=== PATIENT | female | born 1955 | race Two or more races ===

== ENCOUNTER → 2025-02-16 | Outpatient (CLI) | payer MEDICARE, MEDICAID, SELFPAY ==
[2025-02-16 14:23] LABS: Basophils # (Auto) 0.1 Thou/mm3 (0.0-0.2); Basophils % (Auto) 1 % (0-2.5); Eosinophils # (Auto) 0.3 Thou/mm3 (0.0-0.5); Eosinophils % (Auto) 3 % (0-10); Hemoglobin 13.6 g/dL (12.0-16.0); Immature Granulocytes % (Auto) 0 % (0-0); Immature Granulocytes Auto 0.04 Thou/mm3 (0.00-0.00); Lymphocytes # (Auto) 2.2 Thou/mm3 (1.0-4.8); Lymphocytes % (Auto) 23 % (10-50); Mean Corpuscular HGB Conc 33.2 g/dl (31.0-37.0); Mean Corpuscular Hemoglobin 29.8 pg (25.0-35.0); Mean Corpuscular Volume 90 fL (80-100); Monocytes # (Auto) 0.7 Thou/mm3 (0.0-0.8); Monocytes % (Auto) 8 % (0-12); Neutrophils # (Auto) 6.2 Thou/mm3 (1.8-7.7); Neutrophils % (Auto) 65 % (37-80); Nucleated Red Blood Cell % 0 /100 WBC (0); Platelet Count 202 Thou/mm3 (140-440); RDW Standard Deviation 45.3 fL (36.4-46.3); Red Blood Count 4.57 Miln/mm3 (4.00-5.20); White Blood Count 9.5 Thou/mm3 (3.6-11.0)
[2025-02-16 14:42] LABS: Ferritin 92 ng/mL (7.3-270.7); Iron 50 mcg/dL (50-170); Total Iron Binding Capacity 332 mcg/dL (250-425)
[2025-02-16 14:44] LABS: Alanine Aminotransferase 24 U/L (10-49); Albumin, Serum 4.1 gm/dL (3.4-4.8); Albumin/Globulin Ratio 1.4 (1.2-2.2); Alkaline Phosphatase 91 U/L (46-116); Anion Gap 5 (7-16); Aspartate Amino Transferase 23 U/L (0-34); BUN/Creatinine Ratio 17 Ratio (12-20); Bilirubin,Total 0.3 mg/dL (0.3-1.2); Blood Urea Nitrogen 20 mg/dL (9-23); Calcium 9.3 mg/dL (8.3-10.6); Calcium (Corrected) 9.3 mg/dL (8.5-10.1); Carbon Dioxide 28.3 mMol/L (20.0-31.0); Chloride 107 mMol/L (98-107); Cholesterol 157 mg/dL (132-200); Creatinine (Component) 1.2 mg/dL (0.6-1.3); Free T4 (Free Thyroxine) 1.15 ng/dL (0.89-1.76); Globulin 2.9 gm/dL (2.3-3.5); Glucose 91 mg/dL (74-106); HDL Cholesterol 52 mg/dL (40-60); LDL Cholesterol,Calculated 90 mg/dL (0-130); Osmolality,Calculated 282 (275-295); Potassium 4.4 mMol/L (3.4-5.1); Sodium 140 mMol/L (136-145); Thyroid Stimulating Hormone 2.34 uIU/mL (0.55-4.78); Triglycerides 77 mg/dL (30-150); eGFR 49 See Note
[2025-02-16 16:12] LABS: Folate 17.31 ng/mL (>5.38); Vitamin B12 404 pg/mL (211-911); Vitamin D 25 Hydroxy Total 12.1 ng/mL (7.3-40.2)
[2025-02-23 06:41] LABS: T3,Total* 141 ng/dL (76-181)
== END | disposition home or self-care (01) ==
PROVIDERS: PCP Nurse Practitioner; Referring Provider Nurse Practitioner; Visit Provider Nurse Practitioner
DX: E78.5 Hyperlipidemia, unspecified (principal); E03.9 Hypothyroidism, unspecified; R53.83 Other fatigue; E87.6 Hypokalemia; E53.8 Deficiency of other specified B group vitamins; E55.9 Vitamin D deficiency, unspecified
CPT/HCPCS: 36415; 80053; 80061; 82306; 82607; 82728; 82746; 83540; 83550; 84439; 84443; 84480; 85025

== ENCOUNTER → 2025-08-24 | Outpatient (CLI) | payer MEDICARE, MEDICAID, SELFPAY ==
--- NOTE | 2025-08-24 15:20 | XR_ITS ---
Examination: Thoracic spine 2 views Technique one AP lateral thoracic spine 2 views Date and time: 11/24/2024 1530 hours INDICATIONS: Back pain 10 years. FINDINGS: Severe osteopenia. Thoracic dextroscoliosis 15 degrees. Mild kyphosis dorsal spine secondary to mild chronic wedging of mid dorsal vertebral bodies Moderate diffuse thoracic degenerative disc disease IMPRESSION: Moderate diffuse thoracic degenerative disc disease
--- NOTE | 2025-08-24 15:20 | XR_ITS ---
Examination: Cervical spine 3 views Technique one AP lateral coned AP odontoid cervical spine 3 views Date and time: August 24, 2025 1524 hours INDICATIONS: Neck pain beginning 10 years ago. FINDINGS: Adequate alignment cervical vertebral bodies No cervical fracture. Advanced degenerative disc disease C4-C5, C5-C6, C6-C7, C7-T1 with prominent anterior osteophyte formation The odontoid is intact IMPRESSION: Diffuse advanced cervical degenerative disc disease
--- NOTE | 2025-08-24 15:20 | XR_ITS ---
Examination: Lumbar spine 3 views Technique one AP lateral coned lateral lower lumbar spine 3 views Date and time: August 24, 2025, 1532 hours. INDICATIONS: Back pain 10 years. FINDINGS: Grade 1 anterolisthesis L5 on S1 Diffuse moderate to advanced lumbar degenerative disc disease No acute lumbar fracture Moderate lumbar spondylosis IMPRESSION: Diffuse moderate to advanced lumbar degenerative disc disease
== END | disposition home or self-care (01) ==
LOC: CDIM 15:12
PROVIDERS: PCP Family Medicine; Referring Provider Nurse Practitioner; Visit Provider Nurse Practitioner
DX: M50.30 Other cervical disc degeneration, unspecified cervical region (principal); M51.360 Other intervertebral disc degeneration, lumbar region with discogenic back pain only; M51.34 Other intervertebral disc degeneration, thoracic region
CPT/HCPCS: 72040; 72070; 72100